=== PATIENT | male | born 1990 | race African-American/Black ===

== ENCOUNTER 2019-09-01 07:26 | Emergency (ER) | payer OTHER, MEDICAID ==
[~2019-09-01] VITALS: Ht 188 cm; Wt 82.0 kg
[2019-09-01] MEDS ORDERED: IBUPROFEN 600MG TABLET PO ONE (08:00)
[2019-09-01 09:47] VITALS: BP 135/75
== END 2019-09-01 09:48 | disposition home or self-care (01) ==
LOC: ER 07:26
DX: S16.1XXA Strain of muscle, fascia and tendon at neck level, initial encounter (principal); S39.012A Strain of muscle, fascia and tendon of lower back, initial encounter; M79.641 Pain in right hand; V49.59XA Passenger injured in collision with other motor vehicles in traffic accident, initial encounter; Y93.89 Activity, other specified; Y92.89 Other specified places as the place of occurrence of the external cause; Y99.8 Other external cause status
CPT/HCPCS: 72040; 72100; 73130; 99283